=== PATIENT | male | born 1965 | race Caucasian/White ===

== ENCOUNTER 2019-08-28 11:43 | Day surgery (SDC) | payer BC, OTHER ==
[~2019-08-28 11:43] MED LIST: Lactated Ringers 1,000 ML IV SCH; Sodium Chloride 0.9% 10 ML Syringe FLUSH PRN
--- NOTE | 2019-08-28 12:43 | PCM.HPR ---
H & P Addendum review - H & P Addendum Review Date of Original H & P: 08/21/19 Date Reviewed: 08/28/19 Time Reviewed: 12:43 Patient was Examined: No Changes
--- NOTE | 2019-08-28 13:36 | PCM.OPNOTE ---
- General Post-Op/Procedure Note Date of Surgery/Procedure: 08/28/19 Operative Procedure(s): Colonoscopy with bx's Findings: Abnormal terminal ileum Pre Op Diagnosis: Chronic Diarrhea Post-Op Diagnosis: Same Anesthesia Technique: TARA Primary Surgeon: Drake Castellano Anesthesia Provider: Cindy Kearney Pathology: Bx's Condition: Good
[2019-08-28] MEDS ORDERED: Midazolam 1 MG/ML 2 ML SDV ONE ×2 (13:43)
[2019-08-28] MEDS ORDERED: Propofol 200 MG/20 ML SDV ONE ×2 (13:43)
--- NOTE | 2019-08-28 14:09 | PCM.OPNOTE ---
- General Post-Op/Procedure Note Date of Surgery/Procedure: 08/28/19 Operative Procedure(s): Colonoscopy Findings: Normal Pre Op Diagnosis: Screening Post-Op Diagnosis: Same Anesthesia Technique: TARA Primary Surgeon: Drake Castellano Anesthesia Provider: Cindy Kearney Complications: None Condition: Good
[2019-08-28 14:27] VITALS: BP 148/89; PULSE 77
--- NOTE | 2019-08-29 09:11 | OR ---
Date of Procedure: 08/28/2019 PREOPERATIVE DIAGNOSIS: Colon screening. POSTOPERATIVE DIAGNOSIS: Normal colonoscopy. PROCEDURE: Colonoscopy. ANESTHESIA: IV sedation. DESCRIPTION OF PROCEDURE: The patient was brought to the procedure room where he was placed on his left side and IV sedation administered. Digital rectal exam was performed which was normal. Colonoscope was inserted and advanced to the level of the cecum without difficulty. Cecal position was confirmed by identifying the appendiceal lumen and the ileocecal valve. Prep was good and surfaces were well visualized. Upon withdrawing the scope, the ascending, transverse, and descending colon were normal in appearance. Sigmoid colon and rectum were normal. Retroflexion was normal. Air was removed and the scope withdrawn. The patient tolerated the procedure well and returned to Recovery in stable condition. Recommended routine colon screening again in 10 years. PK MONTOYA MD /[id number]
== END 2019-08-28 14:42 | disposition home or self-care (01) ==
LOC: LL.SDS 11:43
PROVIDERS: ATTEND Surgery
DX: Z12.11 Encounter for screening for malignant neoplasm of colon (principal); J45.909 Unspecified asthma, uncomplicated; F98.8 Other specified behavioral and emotional disorders with onset usually occurring in childhood and adolescence; F17.220 Nicotine dependence, chewing tobacco, uncomplicated; G47.33 Obstructive sleep apnea (adult) (pediatric); Z83.79 Family history of other diseases of the digestive system; Z79.899 Other long term (current) drug therapy
CPT/HCPCS: 00812; J2250; J2704; J7120

== ENCOUNTER 2023-07-05 09:31 | Emergency (ER) | payer OTHER, BC ==
[2023-07-05 09:39] VITALS: PULSE 80
[2023-07-05 09:40] VITALS: BP 146/87
[2023-07-05] MEDS ORDERED: Ketorolac 10 MG Tab PO ONE (10:33)
== END 2023-07-05 11:15 | disposition home or self-care (01) ==
LOC: LL.ED 09:31
DX: S99.912A Unspecified injury of left ankle, initial encounter (principal); R03.0 Elevated blood-pressure reading, without diagnosis of hypertension; X50.1XXA Overexertion from prolonged static or awkward postures, initial encounter; Y92.69 Other specified industrial and construction area as the place of occurrence of the external cause
CPT/HCPCS: 73610-LT; 99283